=== PATIENT | male | born 1930 | race Caucasian/White ===

== ENCOUNTER → 2016-07-14 | Outpatient (CLI) | payer MEDICARE, BC ==
[~2016-07-14] MED LIST: ACET-2723 PO; ASPI-611 PO; CHOL400T PO; DILT300C24 PO; DOCU-175 PO; ENOX40DI SQ; FINA5TAB2 PO; GABA-215 PO; HYDR-3989 PO; HYDR12.512 PO; MAGN400O4 PO; MULT-21 PO; MULT-806 PO; PANT40TA PO; POLY17PO6 PO; TAMS0.4C20 PO
== END ==
LOC: NWCC 08:40
PROVIDERS: ATTEND Internal Medicine
DX: L89.223 Pressure ulcer of left hip, stage 3 (principal); Z87.898 Personal history of other specified conditions; Z72.3 Lack of physical exercise; I10 Essential (primary) hypertension; Z82.49 Family history of ischemic heart disease and other diseases of the circulatory system; Z80.0 Family history of malignant neoplasm of digestive organs; B96.89 Other specified bacterial agents as the cause of diseases classified elsewhere
CPT/HCPCS: 11042; 87070; 87075; 87147; 87205; A6209; A6260; G0463

== ENCOUNTER → 2016-07-21 | Outpatient (CLI) | payer MEDICARE, BC | LOC: NWCC 13:57 | PROVIDERS: ATTEND Internal Medicine | DX: L89.223 Pressure ulcer of left hip, stage 3 (principal); Z87.898 Personal history of other specified conditions | CPT/HCPCS: 11042; A6209; A6260 ==